=== PATIENT | male | born 1990 | race Caucasian/White ===

== ENCOUNTER 2020-11-01 02:16 | Emergency (ER) | payer OTHER, BC ==
[2020-11-01] MEDS ORDERED: Lidocaine 1% PF 5 ML VIAL ONE (02:47)
== END 2020-11-01 03:28 | disposition home or self-care (01) ==
LOC: BURERS 02:16
DX: S81.812A Laceration without foreign body, left lower leg, initial encounter (principal); S70.312A Abrasion, left thigh, initial encounter; V03.90XA Pedestrian on foot injured in collision with car, pick-up truck or van, unspecified whether traffic or nontraffic accident, initial encounter; Z79.899 Other long term (current) drug therapy
CPT/HCPCS: 12001